=== PATIENT | female | born 1990 | race Caucasian/White ===

== ENCOUNTER 2021-04-03 16:17 | Emergency (ER) | payer MEDICAID ==
[~2021-04-03] VITALS: Ht 162.5 cm; Wt 97.9 kg
--- OUTSIDE RECORDS SUMMARY | 2021-04-03 16:23 | XMS REPORT ---
Author Loren Gerber [facility] ou Address [address] [place], [place] [id number] Care Team Providers Care Grape Grower Name Role Phone Patrica Giles PCP Janet Raygoza PreferredProvider Allergies and Adverse Reactions Name Reaction Notes PENICILLINS Bactrim Plan of Treatment Planned Activity Comments Planned Date Planned Time Plan/Goal CX CHEST 2 VIEWS 03/06/2020 12:00 AM Medications Active Name Start Date Estimated Completion Date SIG Co mments ProAir HFA 90 mcg/actuation inhalation HFA aerosol inhaler 03/0807/06/2021 inhale 1 - 2 puffs (90 - 180 mcg) by inhalation route every 4-6 hours as needed for 30 days azithromycin 250 mg oral tablet 03/08/2021 03/13/2021 take 2 tablets (500 mg) by oral route once daily for 1 day then 1 tablet (250 mg) by oral route once daily for 4 days Name Start Date Expiration Date SIG Comments Latuda 80 mg oral tablet 10/24/2014 04/22/2015 take 1 tablet (80 mg) by oral route once daily with food (at least 350 calories) for 30 days Advair Diskus 250-50 mcg/dose inhalation blister with device 10/2404/22/2015 inhale 1 puff by inhalation route 2 times per day in the morning and evening approximately 12 hours apart for 30 days Zofran ODT 4 mg oral tablet,disintegrating 03/16/201503/19 dissolve 1 tablet by oral route every 8 hours for 3 days promethazine-codeine 6.25-10 mg/5 mL oral syrup 06/02/2015 take 5 milliliters by oral route every 4-6 hours as needed, not to exceed 30 mL in 24 hours Zithromax Z-Sd 250 mg oral tablet 06/02/2015 06/07/2015 take 2 tablets (500 mg) by oral route once daily for 1 day then 1 tablet (250 mg) by oral route once daily for 4 days Ventolin HFA 90 mcg/actuation inhalation HFA aerosol inhaler 06/02/2015 07/02/2015 inhale 1 - 2 puffs (90 - 180 mcg) by inh alation route every 6 hours as needed for 30 days Levaquin 500 mg oral tablet 05/17/2016 05/24/2016 take 1 tablet (500 mg) by oral route once daily for 7 days amitriptyline 25 mg oral tablet 07/03/2016 08/02/2016 take 1 tablet (25 mg) by oral route once daily at bedtime for 30 days Valtrex 1 gram oral tablet 09/03/2016 09/17/2016 take 1 tablet (1,000 mg) by oral route once daily for 14 days cyclobenzaprine 10 mg oral tablet 09/03/2016 10/03/2016 1 TABLET AT BEDTIME FOR HEADACHES PREVENTION Cipro 500 mg oral tablet 09/18/2016 09/28/2016 take 1 tablet (500 mg) by oral route every 12 hours for 10 days clindamycin HCl 150 mg oral capsule 07/17/2017 07/27/2017 take 1 capsule (150 mg) by oral route 2 times per day for 10 days clindamycin HCl 300 mg oral capsule 12/10/2017 12/17/2017 take 1 capsule (300 mg) by oral route 2 times per day for 7 days Zithromax 250 mg oral tablet 12/30/2018 01/04/2019 catarino e 2 tablets (500 mg) by oral route once daily for 1 day then 1 tablet (250 mg) by oral route once daily for 4 days cefdinir 300 mg oral capsule 02/12/2019 02/22/2019 catarino e 1 capsule (300 mg) by oral route every 12 hours for 10 days ibuprofen 200 mg oral tablet 02/12/2019 02/26/2019 catarino e 1 tablet (200 mg) by oral route every 4 hours as needed with food for 7 days azithromycin 250 mg oral tablet 03/11/2019 03/16/2019 take 2 tablets (500 mg) by oral route once daily for 1 day then 1 tablet (250 mg) by oral route once daily for 4 days prednisone 20 mg oral tablet 03/11/2019 03/16/2019 catarino e 1 tablet (20 mg) by oral route once daily x 5 days Fioricet 50-300-40 mg oral capsule 03/15/2019 06/13/2019 take 1 capsule by oral route every 4 hours as needed for 30 days azithromycin 500 mg oral tablet 01/25/2020 01/30/2020 take 1 tablet (500 mg) by oral route once daily for 5 days prednisone 20 mg oral tablet 01/25/2020 01/30/2020 catarino e 1 tablet (20 mg) by oral route once daily for 5 days promethazine-codeine 6.25-10 mg/5 mL oral syrup 01/25/2020 02/14/2020 take 5 milliliters by oral route every 4-6 hours as needed, not to exceed 30 mL in 24 hours for 10 days Ventolin HFA 90 mcg/actuation inhalation HFA aerosol inhaler 03/06/2020 07/04/2020 inhale 1 puff (90 mcg) by inhalation rou te every 6 hours as needed for 30 days albuterol sulfate 1.25 mg/3 mL inhalation solution for nebul ization 03/06/2020 07/04/2020 inhale 3 milliliters (1.25 mg) via nebul izer by inhalation route 3-4 times daily for 30 days Discontinued Name Start Date Discontinued Date SIG Comments lithium carbonate Oral 600 mg Oral capsule 10/24/2014 600 mg am,900mg at hs levothyroxine Oral 10/24/2014 one daily Bactrim DS 800-160 mg oral tablet 04/20/2012 take 1 tablet by oral route 2 times per day pyridium 04/20/2012 x 3 days Topamax 25 mg oral tablet 06/19/2016 07/03/2016 take 1 tablet at hs for 1 week then add 1 tablet am promethazine-codeine 6.25-10 mg/5 mL oral syrup 02/12/2019 03/11/2019 take 5-10 milliliters by oral route once a day (at bedtime) as needed for 24 days ondansetron HCl 4 mg oral tablet 05/25/2019 03/06/2020 take 1 by oral route q 4-6 hrs PRN vomiting Xofluza 40 mg oral tablet 05/26/2019 05/27/2019 take 2 tablets (80 mg) by oral route once SUSIE (28) 3-0.02 mg oral tablet 05/24/2020 03/08/2021 t anushka 1 tablet by oral route once daily for 28 days Problem List Description Status Onset Asthma Active ADHD Active Hypothyroidism, Acquired Active Rectal bleeding Active 07/07/2013 Dyspepsia Active 07/07/2013 Peptic ulcer disease Active 07/07/2013 Vital Signs Date Time BP-Sys(mm[Hg] BP-Rose(mm[Hg]) HR(bpm) RR(rpm) Temp WT HT HC BMI BSA BMI Percentile O2 Sat(%) 03/08/2021 5:43:00 PM 116 mm[Hg] 72 mm[Hg] 98 {beats}/min 18 rpm 97.9 F 218 lbs 64 in 37.4192 kg/m2 2.1131 m2 96 % 03/06/2020 2:35:00 PM 132 mm[Hg] 86 mm[Hg] 98 {beats}/min 20 rpm 97.9 F 223 lbs 64 in 38.28 kg/m2 2.14 m2 96 % 05/27/2019 3:25:00 PM 132 mm[Hg] 94 mm[Hg] 114 {beats}/min 22 rpm 99.1 F 237 lbs 64 in 40.6805 kg/m2 2.2032 m2 98 % 05/25/2019 2:00:00 PM 142 mm[Hg] 98 mm[Hg] 116 {beats}/min 22 rpm 99.1 F 244.375 lbs 64 in 41.95 kg/m2 2.24 m2 97 % 05/14/2019 4:58:00 PM 130 mm[Hg] 98 mm[Hg] 93 {beats}/min 18 rpm 99 F 244 lbs 64 in 41.8821 kg/m2 2.2355 m2 97 % 03/15/2019 5:47:00 PM 130 mm[Hg] 92 mm[Hg] 86 {beats}/min 18 rpm 97.7 F 242 lbs 64 in 41.54 kg/m2 2.23 m2 97 % 03/11/2019 1:01:00 PM 128 mm[Hg] 88 mm[Hg] 112 {beats}/min 18 rpm 98.2 F 242 lbs 64 in 41.5388 kg/m2 2.2264 m2 95 % 02/12/2019 4:01:00 PM 118 mm[Hg] 84 mm[Hg] 89 {beats}/min 18 rpm 98.6 F 244 lbs 62 in 44.63 kg/m2 2.20 m2 97 % 12/30/2018 1:52:00 PM 122 mm[Hg] 78 mm[Hg] 78 {beats}/min 18 rpm 98.2 F 240.5 lbs 62 in 43.9876 kg/m2 2.1845 m2 97 % 03/09/2018 3:19:00 PM 120 mm[Hg] 74 mm[Hg] 108 {beats}/min 18 rpm 98.8 F 216.25 lbs 62 in 39.55 kg/m2 2.07 m2 98 % 12/10/2017 2:00:00 PM 128 mm[Hg] 78 mm[Hg] 82 {beats}/min 18 rpm 98.1 F 215.375 lbs 62 in 39.3922 kg/m2 2.0673 m2 98 % 07/17/2017 11:00:00 AM 122 mm[Hg] 78 mm[Hg] 86 {beats}/min 18 rpm 98.1 F 201.5 lbs 62 in 36.85 kg/m2 2.00 m2 97 % 10/09/2016 10:59:00 AM 132 mm[Hg] 86 mm[Hg] 80 {beats}/min 18 rpm 98.2 F 224.375 lbs 62 in 41.0383 kg/m2 2.11 m2 97 % 09/18/2016 10:02:00 AM 128 mm[Hg] 80 mm[Hg] 66 {beats}/min 18 rpm 97.6 F 231 lbs 62 in 42.25 kg/m2 2.14 m2 96 % 09/03/2016 10:01:00 AM 118 mm[Hg] 68 mm[Hg] 82 {beats}/min 18 rpm 97.6 F 232.25 lbs 62 in 42.4786 kg/m2 2.1467 m2 97 % 06/19/2016 1:24:00 PM 124 mm[Hg] 74 mm[Hg] 76 {beats}/min 18 rpm 98.1 F 249.125 lbs 62 in 45.57 kg/m2 2.22 m2 98 % 05/17/2016 10:40:00 AM 122 mm[Hg] 80 mm[Hg] 90 {beats}/min 16 rpm 98.9 F 253 lbs 62 in 46.2738 kg/m2 2.2406 m2 96 % 06/02/2015 6:40:00 PM 118 mm[Hg] 80 mm[Hg] 91 {beats}/min 18 rpm 97.3 F 241 lbs 62 in 44.08 kg/m2 2.19 m2 100 % 03/16/2015 9:44:00 AM 124 mm[Hg] 74 mm[Hg] 85 {beats}/min 18 rpm 7.6 F 241.187 lbs 62 in 44.1133 kg/m2 2.1876 m2 99 % 11/29/2014 10:07:00 AM 130 mm[Hg] 80 mm[Hg] 88 {beats}/min 16 rpm 97.1 F 237 lbs 64 in 40.68 kg/m2 2.20 m2 97 % 10/24/2014 10:55:00 AM 138 mm[Hg] 90 mm[Hg] 88 {beats}/min 16 rpm 96.9 F 234 lbs 64 in 40.1656 kg/m2 2.1893 m2 98 % 07/07/2013 10:52:00 AM 115 mm[Hg] 87 mm[Hg] 79 {beats}/min 16 rpm 98.2 F 230 lbs 64 in 39.48 kg/m2 2.17 m2 04/20/2012 1:35:00 PM 120 mm[Hg] 80 mm[Hg] 76 {beats}/min 18 rpm 96.5 F 188.375 lbs 64 in 32.3342 kg/m2 1.9643 m2 97 % Social History Name Description Comments Tobacco Former smoker Alcohol Current some day History of Procedures Date Ordered Description Order Status 06/02/2015 12:00 AM Decadron, Per 1 Mg [facility]# [id number] Re viewed 06/02/2015 12:00 AM Depo-Medrol 40mg Reviewed 05/17/2016 12:00 AM CHEST X-RAY 2VW FRONTAL&LATL Reviewed 06/19/2016 12:00 AM COMPLETE CBC W/AUTO DIFF WBC Reviewed 06/19/2016 12:00 AM COMPREHEN METABOLIC PANEL Reviewed 06/19/2016 12:00 AM GLYCOSYLATED HEMOGLOBIN TEST Reviewed 06/19/2016 12:00 AM ASSAY THYROID STIM HORMONE Reviewed 06/19/2016 12:00 AM ASSAY OF FREE THYROXINE Reviewed 06/19/2016 12:00 AM ANTINUCLEAR ANTIBODIES MADHAVI Reviewed 06/19/2016 12:00 AM ASSAY TRIIODOTHYRONINE (T3) Reviewed 06/19/2016 12:00 AM ROUTINE VENIPUNCTURE Reviewed 10/09/2016 12:00 AM COMPLETE CBC W/AUTO DIFF WBC Reviewed 10/09/2016 12:00 AM COMPREHEN METABOLIC PANEL Reviewed 10/09/2016 12:00 AM HETEROPHILE ANTIBODY SCREEN Reviewed 10/09/2016 12:00 AM ANTISTREPTOLYSIN O TITER Reviewed 10/09/2016 12:00 AM CULTURE SCREEN ONLY Reviewed 10/09/2016 12:00 AM VIRUS INOCULATION TISSUE Reviewed 10/14/2016 12:00 AM US EXAM OF HEAD AND NECK Reviewed 04/20/2012 12:00 AM US EXAM ABDOM COMPLETE Reviewed 04/28/2012 12:00 AM Hepatobiliary ductal system imaging with functional assessment Reviewed 03/09/2018 3:26 PM URINALYSIS AUTO W/O SCOPE Reviewed 03/09/2018 12:00 AM URINE CULTURE/COLONY COUNT Reviewed 03/09/2018 12:00 AM THER/PROPH/DIAG INJ SC/IM Reviewed 03/09/2018 12:00 AM URINALYSIS AUTO W/O SCOPE Reviewed 03/09/2018 12:00 AM Rocephin 1 gram Injection Reviewed 12/30/2018 12:00 AM Decadron 4mg Injection Reviewed 12/30/2018 12:00 AM Depo-Medrol 40mg Injection Reviewed 12/30/2018 9:15 PM FALL RISK ASSESSMENT DOCD Reviewed 12/30/2018 9:15 PM SCREEN DEPRESSION PERFORMED Reviewed 02/12/2019 4:23 PM URINALYSIS AUTO W/O SCOPE Reviewed 02/12/2019 4:38 PM STREP A ASSAY W/OPTIC Reviewed 02/12/2019 12:00 AM Decadron 8mg Injection Reviewed 02/12/2019 12:00 AM Depo-Medrol 80mg Injection Reviewed 02/12/2019 12:00 AM THER/PROPH/DIAG INJ SC/IM Reviewed 02/12/2019 12:00 AM MICROBIOLOGY PROCEDURE Reviewed 03/15/2019 12:00 AM THER/PROPH/DIAG INJ SC/IM Reviewed 03/15/2019 12:00 AM Phenergan 50mg Injection Reviewed 03/15/2019 12:00 AM Toradol 60 Mg Injection Reviewed 05/14/2019 5:02 PM INFLUENZA ASSAY W/OPTIC Reviewed 05/14/2019 12:00 AM THER/PROPH/DIAG INJ SC/IM Reviewed 05/14/2019 12:00 AM Rocephin 1 gram Injection Reviewed 05/14/2019 12:00 AM Depo-Medrol 40mg Injection Reviewed 05/14/2019 12:00 AM Decadron 4mg Injection Reviewed 05/25/2019 2:24 PM INFLUENZA A/B AG EIA Reviewed 05/25/2019 12:00 AM Toradol 60 Mg Injection Reviewed 05/25/2019 12:00 AM THER/PROPH/DIAG INJ SC/IM Reviewed 05/27/2019 3:37 PM FALL RISK ASSESSMENT DOCD Reviewed 05/27/2019 3:37 PM SCREEN DEPRESSION PERFORMED Reviewed 05/27/2019 3:43 PM URINALYSIS AUTO W/O SCOPE Reviewed 05/27/2019 12:00 AM Kenalog 40mg Injection Reviewed 03/06/2020 12:00 AM Decadron 8mg Injection Reviewed 03/06/2020 12:00 AM Depo-Medrol 80mg Injection Reviewed 03/06/2020 12:00 AM THER/PROPH/DIAG INJ SC/IM Reviewed 10/24/2014 12:00 AM COMPREHEN METABOLIC PANEL Reviewed 10/24/2014 12:00 AM LIPID PANEL Reviewed 10/24/2014 12:00 AM GLYCOSYLATED HEMOGLOBIN TEST Reviewed 10/24/2014 12:00 AM ASSAY THYROID STIM HORMONE Reviewed Results Summary Date and Description Results 10/24/2014 12:13 PM TRIGLYCERIDES 292.0 mg/dLCHO LESTEROL 200.0 mg/dLHDL 34.0 mg/dLTOT CHOL/HDL 5.9 LDL (CALC) 108.0 mg/dLTSH 1.340 uIU/mLGLUCOSE 84.0 mg/dLSODIUM 137.0 mmol/LPOTASSIUM 3.90 mmol/LCHLORIDE 106.0 mmol/LCO2 21.0 mmol/LBUN 15.0 mg/dLCREATININE 0.80 mg/dLSGOT/AST 22.0 IU/LSGPT/ALT 42.0 IU/LALK PHOS 64.0 IU/LTOTAL PROTEIN 7.40 g/dLALBUMIN 4.40 g/dLTOTAL BILI 0.60 mg/dLCALCIUM 10.20 mg/dLAGE 24 GFR NonAA 89 GFR AA 108 eGFR >60 mL/min/1.73 m2eGFR AA* >60 Hemoglobin A1c 5.60 %Estim. Avg Glu (eAG) 114 mg/dL 03/09/2018 3:26 PM Clarity Ur cloudy Urine-[place] Glucose Ur-sCnc negative Bilirub Ur Ql negative Ketones Ur Ql Strip negative Sp Gr Ur Qn 1.020 Hgb Ur Ql Strip large pH Ur-LsCnc 6.5 Prot Ur Ql Strip negative Urobilinogen Ur-mCnc negative Nitrite Ur Ql Strip negative WBC # Ur moderate 03/09/2018 3:36 PM Falls in last 6 months? No U nsteady or worry about falling? No Fall Risk Assessment Not At Risk During the past month, have you been feeling depressed? No During the past month, have you lost interest in usual activity? No 12/30/2018 9:15 PM Falls in last 6 months? No U nsteady or worry about falling? No Fall Risk Assessment Not At Risk During the past month, have you been feeling depressed? No During the past month, have you lost interest in usual activity? No 02/12/2019 4:37 PM Clarity Ur cl Urine-Color ye llow Glucose Ur-sCnc neg Bilirub Ur Ql neg Ketones Ur Ql Strip neg Sp Gr Ur Qn 1.025 Hgb Ur Ql Strip neg pH Ur- LsCnc 5.5 Prot Ur Ql Strip neg Urobilinogen Ur-mCnc 0.2 Nitrite Ur Ql Strip neg WBC # Ur neg 02/12/2019 4:42 PM STREPTOCOCCUS, GROUP A CULTU RE neg 05/14/2019 5:16 PM Influenza A neg Influenza B neg 05/25/2019 2:24 PM Influenza A negative Influen za B negative 05/27/2019 3:37 PM Falls in last 6 months? No U nsteady or worry about falling? No Fall Risk Assessment Not At Risk During the past month, have you been feeling depressed? No During the past month, have you lost interest in usual activity? No 05/27/2019 3:43 PM Clarity Ur clear Urine-Color dark yellow Glucose Ur-sCnc negative Bilirub Ur Ql negative Ketones Ur Ql Strip trace Sp Gr Ur Qn 1.015 Hgb Ur Ql Strip trace pH Ur-LsCnc 6.0 Prot Ur Ql Strip trace Urobilinogen Ur-mCnc negative Nitrite Ur Ql Strip negative WBC # Ur negative History Of Immunizations Not available. History of Past Illness Name Date of Onset Comments ADHD Asthma Hypothyroidism, Acquired Anxiety disorder Rectal bleeding 07/07/2013 Dyspepsia 07/07/2013 Peptic ulcer disease 07/07/2013 Abdominal Pain Apr 20 2012 1:53PM Abdominal Pain Apr 20 2012 1:40PM Abdominal Pain, Right Upper Quadrant Feb 5 2013 4:13PM Rectal bleeding Jul 07 2013 10:55AM Dyspepsia Jul 07 2013 10:55AM Hypothyroidism, Acquired Oct 24 2014 10:58AM Elevated blood pressure Oct 24 2014 10:58AM Obesity (BMI 35.0-39.9 without comorbidity) Oct 24 2014 10:5 8AM Well adult exam Oct 24 2014 10:58AM Asthma Oct 24 2014 10:58AM Obesity, Morbid Nov 29 2014 10:10AM Viral gastroenteritis Mar 16 2015 9:47AM Acute bronchitis, unspecified organism Jun 02 2015 6:41PM Cough May 17 2016 10:41AM Acute bronchitis, unspecified organism May 17 2016 10:41AM Fatigue, unspecified type Jun 19 2016 1:27PM Hypothyroidism, Acquired Jun 19 2016 1:27PM Acute non intractable tension-type headache Jun 19 2016 1:2 7PM Migraine with aura and without status migrainosus, not intractable Jun 19 2016 1:27PM Hair loss Jun 19 2016 1:27PM Obesity (BMI 35.0-39.9 without comorbidity) Jun 19 2016 1:2 7PM FUO (fever of unknown origin) Jun 19 2016 1:27PM Muscle ache Jun 19 2016 1:27PM Bipolar 1 disorder Jun 19 2016 1:27PM Family history of diabetes mellitus Jun 19 2016 1:27PM Fibromyalgia Jul 03 2016 5:22PM Herpangina Sep 03 2016 10:04AM Migraine aura, persistent, intractable Sep 03 2016 10:04AM Parotitis Sep 18 2016 10:04AM Acute enteroviral vesicular pharyngitis Oct 09 2016 11:01AM Positive MADHAVI (antinuclear antibody) Oct 09 2016 11:01AM Pharyngitis due to other organism Oct 09 2016 11:01AM Lymphadenopathy of head and neck Oct 09 2016 11:01AM Lymphadenopathy of head and neck Oct 14 2016 4:44PM Parotitis Oct 14 2016 4:44PM Cough Jul 17 2017 11:05AM Acute pharyngitis, unspecified etiology Jul 17 2017 11:05AM Acute non-recurrent pansinusitis Jul 17 2017 11:05AM IUP (intrauterine ), incidental Jul 17 2017 11:05AM Purulent rhinitis Dec 10 2017 2:03PM Extrinsic asthma without complication, u nspecified asthma severity, unspecified whether persistent Dec 10 2017 2:03PM IUP (intrauterine ), incidental Dec 10 2017 2:03PM Cystitis Mar 09 2018 3:26PM Breast feeding status of mother Mar 09 2018 3:26PM Pharyngitis, Acute Dec 30 2018 1:55PM Purulent rhinitis Dec 30 2018 1:55PM Allergic asthma Dec 30 2018 1:55PM Viral illness Feb 12 2019 4:04PM Cough Feb 12 2019 4:04PM Sore throat Feb 12 2019 4:04PM UTI (urinary tract infection) Feb 12 2019 4:04PM Acute maxillary sinusitis Mar 11 2019 1:05PM Acute asthma exacerbation Mar 11 2019 1:05PM Wheezing Mar 11 2019 1:05PM Intractable migraine without aura and without status m igrainosus Mar 15 2019 5:49PM Nausea Mar 15 2019 5:49PM Cervical adenopathy Mar 11 2019 1:05PM Acute bronchitis May 14 2019 5:02PM Cough May 14 2019 5:02PM Influenza May 25 2019 1:59PM Vomiting May 25 2019 1:59PM Headache May 25 2019 1:59PM Acute bronchitis due to Mycoplasma pneumoniae May 27 2019 3 :26PM Cough May 27 2019 3:26PM Body aches May 27 2019 3:26PM Pelvic pressure in female May 27 2019 3:26PM Cough Jan 25 2020 1:53PM Acute maxillary sinusitis Jan 25 2020 1:53PM Cough Mar 06 2020 3:00PM Shortness of breath Mar 06 2020 3:00PM Dyspnea Mar 06 2020 2:35PM control counseling May 24 2020 9:53AM Maxillary Sinusitis, Acute Mar 08 2021 5:44PM Acute Pharyngitis Mar 08 2021 5:44PM Cough Mar 08 2021 5:44PM Payers Insurance Name Company Name Plan Name Plan Number Policy Number Bill cy Group Number Start Date [facility] [id number] [id number] N/ A [employer] Aakash 50 percent Saturday, March 24, 2012 [facility] [id number] [facility] [id number] N/A History of Encounters Visit Date Visit Type Provider 03/08/2021 Office visit Patrica Giles BRAIDER TENDER 05/24/2020 Office visit Mary Grace Saleem BRAIDER TENDER 03/06/2020 Office visit Mary Grace Saleem BRAIDER TENDER 01/25/2020 Office visit Patrica Giles BRAIDER TENDER 05/27/2019 Office visit Janet Cohen PRN 05/25/2019 Office visit Preeti Mckeon APR N 05/14/2019 Office visit Patrica Giles BRAIDER TENDER 03/15/2019 Office visit Patrica Giles BRAIDER TENDER 03/11/2019 Office visit Patrica Giles BRAIDER TENDER 02/12/2019 Office visit Mary Grace CohenShirley Saleem BRAIDER TENDER 12/30/2018 Office visit Janet Cohen PRN 03/09/2018 Office visit Janet Cohen PRN 01/26/2018 [facility] Seth Mccullough MD 12/10/2017 Office visit Janet Cohen PRN 07/17/2017 Office visit Janet Cohen PRN 10/09/2016 Office visit Janet Cohen PRN 09/18/2016 Office visit Janet Cohen PRN 09/03/2016 Office visit Janet Cohen PRN 06/19/2016 Office visit Janet Cohen PRN 05/17/2016 Office visit Lloyd Anna APR N 06/02/2015 Office visit Dory Lara BRAIDER TENDER 03/16/2015 Office visit Lloyd Anna APR N 11/29/[address] Mynor Bailey MD 10/24/2014 Office visit 10/24/[address] Mynor Bailey MD 07/15/2014 [facility] Santana Naranjo MD 07/09/2013 [facility] Rodger Lauren DO 07/07/2013 Office visit Rodger Lauren DO 04/20/2012 Office visit Santana Naranjo MD
--- OUTSIDE RECORDS SUMMARY | 2021-04-03 16:23 | XMS REPORT | Clinical Summary ---
Author Author [facility] Organization [facility] Address Unknown Phone Unavailable Care Team Providers Care Clerk Rating Name Role Phone Unknown, Unknown Md PCP Unavailable Source Comments Some departments are not documenting in the electronic medical record. If you d o not see the information that you expected, contact Release of Information in [facility] [employer] Information Management department at [phone] for further assistan ce in locating additional records.[facility] Allergies Comments Active Allergy Reactions Severity Noted Date Sulfamethoxazole-Trimetho HIVES Medium 09/21 prim Penicillin G HIVES Medium 10/01/2018 Medications End Date Status Medication Sig Dispensed Refills Start Date Active cefuroxime (CEFTIN) 250 TK 1 T PO BID 1 06/22/ 201 mg tablet FOR 10 DAYS 9 Active Problems Problem Noted Date 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 Bilateral SMG Social History Date Tobacco Use Types Packs/Day Years Used Never Smoker Smokeless Tobacco: Never Used Comments Alcohol Use Standard Drinks/Week Never 0 (1 standard drink = 0.6 o z pure alcohol) Alcohol Habits Answer Date Recorded How often do you have a drink containing alcohol? Never 10/01/2018 How many drinks containing alcohol do you have on No t asked a typical day when you are drinking? How often do you have six or more drinks on one Not asked occasion? Comment: Not asked Sex Assigned at Date Recorded Not on file Last Filed Vital Signs Reading Time Taken Comments Vital Sign 126/81 10/01/2018 10:52 AM CDT Blood Pressure 85 10/01/2018 10:52 AM CDT Pulse - - Temperature - - Respiratory Rate - - Oxygen Saturation - - Inhaled Oxygen Concentration 108 kg (238 lb) 10/01/2018 10:52 AM CDT Weight 162.6 cm (5' 4") 10/01/2018 10:52 AM CDT Height 40.85 10/01/2018 10:52 AM CDT Body Mass Index Plan of Treatment Health Maintenance Due Date Last Done Comments HIV SCREENING 2006 DTAP/TDAP VACCINES (1 - 2009 Tdap) HEPATITIS C SCREENING 2009 PHYSICAL (COMPREHENSIVE) 2009 EXAM CERVICAL CANCER SCREENING 02/16/2012 INFLUENZA VACCINE 10/22/2020 Results Not on filefrom Last 3 Months Insurance Type Payer Benefit Subscriber ID Effective Phone Address Plan / Dates Group Indemnity [facility] [id number] 2019-P CHOICE/CHO resent ICE PLUS Advance Directives Patient Lapel Padder Explanation Type Date Recorded Advance Directive/DPOA Care Teams Start Date End Date Clerk Rating Relationship Specialty 10/01/18 Unknown, Unknown, PCP - General
[2021-04-03] MEDS ORDERED: METOCLOPRAMIDE INJ 10 MG/2 ML (REGLAN) IVP ONE (16:45)
[2021-04-03] MEDS ORDERED: NS IV 1000 ML 1,000 ML IV SCH (16:45)
[2021-04-03] MEDS ORDERED: diphenhydrAMINE 50 MG/ML INJ (BENADRYL) IV ONE (16:45)
[2021-04-03 17:03] LABS: BASOPHILS % (AUTO) 0 % (0-10); EOSINOPHILS # (AUTO) 0.1 10^3/uL (0.0-0.3); EOSINOPHILS % (AUTO) 1 % (0-10); HEMATOCRIT 41 % (35-52); HEMOGLOBIN 13.6 g/dL (11.5-16.0); LYMPHOCYTES # (AUTO) 1.8 10^3/uL (1.0-4.0); LYMPHOCYTES % (AUTO) 14 % (12-44); MEAN CORPUSCULAR HEMOGLOBIN 26 pg (25-34); MEAN CORPUSCULAR HGB CONC 34 g/dL (32-36); MEAN CORPUSCULAR VOLUME 79 fL (80-99); MEAN PLATELET VOLUME 10.2 fL (9.0-12.2); MONOCYTES # (AUTO) 0.3 10^3/uL (0.0-1.0); MONOCYTES % (AUTO) 3 % (0-12); NEUTROPHILS % (AUTO) 82 % (42-75); PLATELET COUNT 298 10^3/uL (130-400); WHITE BLOOD COUNT 12.3 10^3/uL (4.3-11.0)
[2021-04-03 17:16] LABS: POTASSIUM 3.6 MMOL/L (3.6-5.0)
[2021-04-03 17:17] LABS: CALCIUM 9.8 MG/DL (8.5-10.1)
[2021-04-03 17:22] LABS: CREATININE SERUM 0.7 MG/DL (0.60-1.30)
--- NOTE | 2021-04-03 18:01 | ED General ---
General Chief Complaint: General Problems/Pain Stated Complaint: HEADACHE/N/V/FATIGUE Nursing Triage Note: 19 WEEKS , HAD INTENSE HEADACHE THIS AM AROUND 1030 WITH ACCOMPANIED NUMBNESS OF THE RIGHT ARM THEN MOUTH. STATES SHE HAD CHANGE IN SMILE WELL WITH NOTED DROOPING TO THE LEFT SIDE. Source of Information: Patient Exam Limitations: No Limitations (GIOVANNA TUCKER STUDENT) History of Present Illness Date Seen by Provider: Apr 03, 2021 Time Seen by Provider: 16:40 Initial Comments Patient is a 31yoF 19 weeks who presents with cc of headache with associated right arm numbness, right-sided visual change, and left facial drooping. Patient first experienced episode of neuro symptoms with her headache around 10 am this morning. She had a second episode around 1400 which prompted her to go to [facility]. She reports a negative CT scan there but she was not happy with the wait and left AMA to come to [facility]. Upon arrival she no longer has any numbness or facial droop. She still complains of headache and has had severe N/V all day which she attributes to . She has been having N/V for her entire and her previous 2 pregnancies caused similar nausea and vomiting symptoms. Patient reports history of migraine without aura but she has not experienced this for nearly 2 years. She denies shortness of breath, chest pain and sick contacts. Timing/Duration: 4-6 Hours Severity: Moderate Associated Systoms: No Chest Pain, No Cough, No Fever/Chills; Headaches, Nausea/Vomiting; No Shortness of Air (GIOVANNA TUCKER STUDENT) Allergies and Home Medications Allergies Coded Allergies: Penicillins (Verified Allergy, Unknown, 04/03/21) sulfamethoxazole (Verified Allergy, Unknown, 04/03/21) trimethoprim (Verified Allergy, Unknown, 04/03/21) Patient Home Medication List Home Medication List Reviewed: Yes (SURY SANDERS DO) Nitrofurantoin Monohyd/M-Cryst (Macrobid 100 mg Capsule) 100 Mg Capsule, 1 TAB PO BID Prescribed by: SURY SANDERS on 04/03/211915 Review of Systems Review of Systems Constitutional: No chills, No diaphoresis, No fever EENTM: blurred vision (right side; episodic peripheral vision loss); No nose congestion Respiratory: No cough, No short of breath Cardiovascular: No chest pain, No palpitations Gastrointestinal: No abdominal pain, No constipation; nausea, vomiting Musculoskeletal: No back pain, No muscle pain Skin: no symptoms reported Psychiatric/Neurological: Denies Anxiety, Denies Depressed Hematologic/Lymphatic: No Symptoms Reported Immunological/Allergic: no symptoms reported (Recondo) Past Oweptql-Mtokid-Mgakbz Hx Patient Social History Tobacco Use?: No Use of E-Cig and/or Vaping dev: No Substance use?: No Alcohol Use?: No (Recondo) Immunizations Up To Date Influenza Vaccine Up-to-Date: Yes; Up-to-Date (Recondo) Physical Exam Vital Signs Vital Signs - First Documented 04/03/21 04/03/21 16:25 19:53 Temp 36.2 Pulse 87 Resp 18 B/P (MAP) 135/75 (95) Pulse Ox 100 (TOMMY,SURY K DO) Vital Signs Capillary Refill : (Recondo) Height, Weight, BMI Height: '" Weight: lbs. oz. kg; 37.00 BMI Method: General Appearance: No Apparent Distress, WD/WN Eyes: Bilateral Eye Normal Inspection, Bilateral Eye PERRL, Bilateral Eye EOMI HEENT: PERRL/EOMI, Pharynx Normal, Moist Mucous Membranes Neck: Full Range of Motion, Normal Inspection, Supple Respiratory: Chest Non Tender, Lungs Clear, Normal Breath Sounds, No Accessory Muscle Use, No Respiratory Distress Cardiovascular: Regular Rate, Rhythm, No Murmur, Normal Peripheral Pulses Gastrointestinal: Normal Bowel Sounds, Non Tender, Soft Back: No CVA Tenderness, No Vertebral Tenderness Extremity: Normal Capillary Refill, Normal Inspection, Normal Range of Motion, Non Tender, No Calf Tenderness Neurologic/Psychiatric: Alert, Oriented x3, No Motor/Sensory Deficits, Normal Mood/Affect, automotive sales associate II-XII Norm as Tested; No Abnormal Gait, No Disoriented, No Facial Droop, No Motor Weakness, No Sensory Deficit Skin: Normal Color, Warm/Dry Lymphatic: No Adenopathy (Recondo) Progress/Results/Core Measures Suspected Sepsis SIRS Temperature: Pulse: 87 Respiratory Rate: 18 Laboratory Tests 04/03/21 16:40: White Blood Count 12.3H Blood Pressure 135 /75 Mean: 95 Laboratory Tests 1/11/22 16:40: Creatinine 0.70, Platelet Count 298 (ISHANPITOEliceoGIOVANNA MED STUDENT) Results/Orders Lab Results Laboratory Tests Test 04/03/21 16:30 04/03/21 16:40 04/03/21 18:14 Range/Units Influenza Type A (RT-PCR) Not Detected Not Detecte Influenza Type B (RT-PCR) Not Detected Not Detecte SARS-CoV-2 RNA (RT-PCR) Not Detected Not Detecte White Blood Count 12.3 H 4.3-11.0 10^3/uL Red Blood Count 5.15 H 3.80-5.11 10^6/uL Hemoglobin 13.6 11.5-16.0 g/dL Hematocrit 41 35-52 % Mean Corpuscular Volume 79 L 80-99 fL Mean Corpuscular Hemoglobin 26 25-34 pg Mean Corpuscular Hemoglobin Concent 34 32-36 g/dL Red Cell Distribution Width 13.6 10.0-14.5 % Platelet Count 298 130-400 10^3/uL Mean Platelet Volume 10.2 9.0-12.2 fL Immature Granulocyte % (Auto) 1 % Neutrophils (%) (Auto) 82 H 42-75 % Lymphocytes (%) (Auto) 14 12-44 % Monocytes (%) (Auto) 3 0-12 % Eosinophils (%) (Auto) 1 0-10 % Basophils (%) (Auto) 0 0-10 % Neutrophils # (Auto) 10.0 H 1.8-7.8 10^3/uL Lymphocytes # (Auto) 1.8 1.0-4.0 10^3/uL Monocytes # (Auto) 0.3 0.0-1.0 10^3/uL Eosinophils # (Auto) 0.1 0.0-0.3 10^3/uL Basophils # (Auto) 0.0 0.0-0.1 10^3/uL Immature Granulocyte # (Auto) 0.1 0.0-0.1 10^3/uL Sodium Level 137 135-145 MMOL/L Potassium Level 3.6 3.6-5.0 MMOL/L Chloride Level 107 98-107 MMOL/L Carbon Dioxide Level 19 L 21-32 MMOL/L Anion Gap 11 5-14 MMOL/L Blood Urea Nitrogen 11 7-18 MG/DL Creatinine 0.70 0.60-1.30 MG/DL Estimat Glomerular Filtration Rate 98 BUN/Creatinine Ratio 16 Glucose Level 129 H 70-105 MG/DL Calcium Level 9.8 8.5-10.1 MG/DL Urine Color YELLOW Urine Clarity CLEAR Urine pH 6.0 5-9 Urine Specific Leon >=1.030 1.016-1.022 Urine Protein NEGATIVE NEGATIVE Urine Glucose (UA) NEGATIVE NEGATIVE Urine Ketones 2+ H NEGATIVE Urine Nitrite NEGATIVE NEGATIVE Urine Bilirubin NEGATIVE NEGATIVE Urine Urobilinogen 0.2 < = 1.0 MG/DL Urine Leukocyte Esterase NEGATIVE NEGATIVE Urine RBC (Auto) NEGATIVE NEGATIVE Urine RBC 0-2 /HPF Urine WBC 2-5 /HPF Urine Squamous Epithelial Cells 2-5 /HPF Urine Crystals NONE /LPF Urine Bacteria FEW H /HPF Urine Casts NONE /LPF Urine Mucus SMALL H /LPF Urine Culture Indicated YES (SURY SANDERS DO) Micro Results Microbiology 04/03/21 Urine Culture - Final, Complete >=3 Gram Positive Isolates (SURY SANDERS DO) My Orders Orders - SURY SANDERS DO Ceftriaxone 1 Gm Pre-Mix (Rocephin 1 Gm (04/03/21 19:16) (SURY SANDERS DO) Medications Given in ED (SURY SANDERS DO) Vital Signs/I&O 04/03/21 04/03/21 16:25 19:53 Temp 36.2 36.0 Pulse 87 91 Resp 18 18 B/P (MAP) 135/75 (95) 141/82 Pulse Ox 100 (SURY SANDERS DO) Vital Signs/I&O Capillary Refill : (GIOVANNA TUCKER MED STUDENT) Blood Pressure Mean: 95 Progress Note : Progress Note 1800--ASSUMED CARE OF PT AT SHIFT CHANGE, UA PENDING PT IS SYMPTOM-FREE AT THIS TIME, AND FEELS COMFORTABLE GOING HOME PT STATES SHE GOES TO [facility] FOR OB CARE. (SURY SANDERS DO) Departure Impression Primary Impression: UTI (urinary tract infection) in in second trimester Disposition: 01 HOME, SELF-CARE Condition: Stable Departure-Patient Inst. Decision time for Depature: 19:10 (SURY SANDERS DO) Referrals: LATOSHA NAVARRO MD (PCP) Primary Care Physician Patient Instructions: Urinary Tract Infections in Add. Discharge Instructions: LOTS OF CLEAR LIQUIDS TYLENOL NEEDED FOR PAIN FOLLOW UP WITH YOUR OB DR THIS WEEK FOR FURTHER CARE All discharge instructions reviewed with patient and/or family. Voiced understanding. Scripts Nitrofurantoin Monohyd/M-Cryst (Macrobid 100 mg Capsule) 100 Mg Capsule 1 TAB PO BID, #20 CAP Prov: SURY SANDERS DO 04/03/21 GIOVANNA TUCKER MED STUDENT Apr 03, 2021 18:01 SURY SANDERS DO Apr 03, 2021 19:15
[2021-04-03 18:28] LABS: BILIRUBIN,URINE NEGATIVE (NEGATIVE); CLARITY,URINE CLEAR; COLOR,URINE YELLOW; GLUCOSE, URINE (UA) NEGATIVE (NEGATIVE); KETONES,URINE 2+ (NEGATIVE); LEUKOCYTE ESTERASE ,URINE NEGATIVE (NEGATIVE); NITRITE,URINE NEGATIVE (NEGATIVE); PROTEIN,URINE NEGATIVE (NEGATIVE)
[2021-04-03 18:57] LABS: BACTERIA,URINE FEW /HPF; RBC,URINE 0-2 /HPF
[2021-04-03] MEDS ORDERED: NITR-65 PO (19:16)
[2021-04-03] MEDS ORDERED: cefTRIAXone 1 GM PRE-MIX 50 ML IV STA (19:16)
[2021-04-03 19:53] VITALS: BP 141/82
== END 2021-04-03 19:53 | disposition home or self-care (01) ==
LOC: EDUNIT# 16:17 → ER 16:19
DX: O23.42 Unspecified infection of urinary tract in pregnancy, second trimester (principal); Z3A.19 19 weeks gestation of pregnancy; Z20.822 Contact with and (suspected) exposure to COVID-19
CPT/HCPCS: 36415; 80048; 81000; 85025; 87088; 87636; 96374; 96375